=== PATIENT | female | born 1970 | race Asian ===

== ENCOUNTER 2021-02-09 18:20 | Observation (INO) ==
[2021-02-09] MEDS ORDERED: ONDANSETRON 4 MG/2 ML VIAL IV PRN (19:34)
[2021-02-09] MEDS ORDERED: PROMETHAZINE 25 MG/ML VIAL IV PRN (19:34)
[2021-02-09] MEDS ORDERED: ACETAMINOPHEN 1,000 MG/100 ML BAG IV PRN (19:44)
--- NOTE | 2021-02-09 19:44 | General Surg History&Physical ---
HPI History of Present Illness Patient information: Note initiated : 02/09/21 at 7:37 pm Service Date, if different from initiated Date: [] Patient: Rachelle Flores a 50 y/o F admitted on for Laparoscopic Appedectomy. Chief Complaint: [] Chief complaint: Acute abdominal pain History of present illness: Ms. Flores is a 50 year old F admitted with acute appendicitis. Patient had onset of pain in the right lower quadrant about 2300 hrs. last evening. The pain became increasingly severe. She denies nausea vomiting. She did not have fever or chills. She was seen at [facility] this afternoon and was noted to have white blood count of 20,500 with right lower quadrant tenderness. CT of the abdomen is compatible with acute appendicitis. Patient is admitted and will be treated with antibiotics tonight. She will have laparoscopic appendectomy tomorrow Review of Systems All systems: reviewed and no additional remarkable complaints except as stated PFSH PFSH All Active Problems (Updated 02/09/21 @ 19:42 by David Moya MD) Acute appendicitis (Acute) Family History Mother , age 49 Cause of unknown No problems noted. Father , age 42 cause of unknown No problems noted. MEDS/ALLERGIES Home Medications and Allergies Home Medications Medication Instructions Recorded Confirmed Type No Known Home Meds 02/09/21 02/09/21 History Allergies Allergy/AdvReac Type Severity Reaction Status Date / Time No Known Drug Allergies Allergy Unverified 02/09/21 19:06 Physical Examination Vital Signs Vital signs: Temp Pulse Resp BP Pulse Ox 99.3 F H 67 20 116/69 100 02/09/21 18:52 02/09/21 18:52 02/09/21 18:52 02/09/21 18:52 02/09/21 18:52 General physical appearance General physical exam: well developed, well nourished, moderate distress and moderate pain Eyes Eye exam: PERRL and normal ocular movement ENT ENT exam: normal nares, normal mucosa and no hearing loss Head Head exam IM: Present atraumatic, normal inspection and normocephalic Neck Neck exam: no masses, no bruits, trachea midline, no lymphadenopathy and no venous distension Cardiovascular Cardiovascular exam IM: Present normal rate and rhythm, RRR, +S1 and +S2; Absent gallop and JVD Respiratory Respiratory exam: normal expansion, normal respiratory effort and clear to auscultation Abdomen Abdomen: Present tender (Tenderness right lower quadrant with guarding) Integumentary Integumentary: Present no rash, no growths and no abnormal pigmentation Neurologic Neurologic: Present normal coordination and normal sensation Musculoskeletal Musculoskeletal: Present normal gait and normal posture Psychiatric Psychiatric: Present oriented to time, oriented to person, oriented to place, speech is normal and memory intact Results Labs Labs: All other labs normal. A/P Assessment and plan (1) Acute appendicitis: Status: Acute Narrative A/P Narrative: Zosyn 3.375 g IV every 6 hours N.p.o. after midnight Scheduled for appendectomy tomorrow Hydromorphone 1 mg IV every 2 hours as needed Promethazine 12.5 mg IV every 6 hours as needed nausea CBC and IP in the morning Chest x-ray and EKG tonight Time Spent With Patient Time: Total time spent is greater than 50% in coordination of care (as documented) at patient's floor/unit and/or counseling patient:
--- NOTE | 2021-02-09 20:27 | XRay Report ---
INDICATION: preop evaluation TECHNIQUE: AP portable chest x-ray COMPARISON: None FINDINGS: Lungs:Lungs are negative. No focal pulmonary parenchymal infiltrate or mass Heart, vascular:No significant cardiomegaly. Pulmonary vascularity is normal. No pulmonary edema or pulmonary congestion Mediastinum, paulina:No mediastinal widening. No hilar mass Pleura:No pleural fluid. No pleural-based mass or calcification Skeletal:Negative. IMPRESSION: Negative AP chest x-ray Interpreted and Authenticated by: Sulaiman Jacob 02/09/21
[2021-02-09 20:37] LABS: Prothrombin Time 13.3 sec (11.9-14.5)
[2021-02-09] MEDS: 0.9 % SODIUM CHLORIDE 1,000 ML IV SCH (20:44)
[2021-02-09] MEDS: HYDROmorphone 1 MG/ML SYRINGE IV PRN (20:51)
[2021-02-09] MEDS: PIPERACILLIN SODIUM/TAZOBACTAM 3.375 GM in DEXTROSE 5% IN WATER 50 ML IV SCH ×2 (20:55→23:47)
[2021-02-10] MEDS: 0.9 % SODIUM CHLORIDE 1,000 ML IV SCH ×4 (04:06→20:36)
[2021-02-10] MEDS: HYDROmorphone 1 MG/ML SYRINGE IV PRN (05:00)
[2021-02-10] MEDS: PIPERACILLIN SODIUM/TAZOBACTAM 3.375 GM in DEXTROSE 5% IN WATER 50 ML IV SCH ×4 (05:05→17:43)
[2021-02-10] MEDS ORDERED: SCOPOLAMINE 1 PATCH PATCH TOPICAL PRN (06:00)
[2021-02-10] MEDS ORDERED: IPRATROPIUM/ALBUTEROL 3 ML AMPUL.NEB NEB PRN ×2 (06:00→11:45)
[2021-02-10] MEDS ORDERED: PANTOPRAZOLE 40 MG VIAL IV SCH (07:30)
[2021-02-10 08:33] LABS: Basophils # (Auto) 0.13 K/mcL (0.00-0.30); Basophils % (Auto) 0.6 % (0.0-2.0); Eosinophils % (Auto) 1.4 % (0.0-7.0); Hemoglobin 12.7 g/dL (11.2-15.7); Lymphocytes # (Auto) 2.72 K/mcL (1.50-4.80); Lymphocytes % (Auto) 12.9 % (15.5-49.0); Mean Cell Volume 93.8 fL (80.0-100.0); Mean Corpuscular HGB Conc 33.4 g/dL (31.0-36.0); Mean Platelet Volume 10.3 fL (7.4-10.4); Monocytes % (Auto) 6.6 % (1.0-12.0); Neutrophils % (Auto) 78.5 % (38.0-78.0); Platelet Count 276 K/mcL (140-440); RBC 4.05 M/mcL (3.59-5.38); Red Cell Distribution Width 12.7 % (11.5-14.5); WBC 21.1 K/mcL (4.5-11.0)
[2021-02-10 08:52] LABS: ALT/SGPT 21 U/L (<40); AST/SGOT 19 U/L (<32); Albumin 3.5 gm/dL (3.2-5.2); Albumin/Globulin Ratio 1.3 (1.0-2.3); Alkaline Phosphatase 93 U/L (39-117); Bilirubin,Direct 0.2 mg/dL (<0.3); Bilirubin,Total 0.8 mg/dL (0.1-1.0); Blood Urea Nitrogen 7 mg/dL (6-20); Calcium 7.9 mg/dL (8.6-10.4); Carbon Dioxide 21 mmol/L (22-30); Chloride 105 mmol/L (96-108); Globulin 2.8 gm/dL (2.2-3.7); Glomerular Filtration Rate 112; Glucose 119 mg/dL (70-105); Lactate Dehydrogenase 166 U/L (135-225); Phosphorous 2.4 mg/dL (2.5-4.5); Triglycerides 76 mg/dL (<150); Uric Acid 3.2 mg/dL (2.5-8.0)
[2021-02-10] MEDS ORDERED: ONDANSETRON 4 MG/2 ML VIAL ONE (11:15)
[2021-02-10] MEDS ORDERED: DEXAMETHASONE 10 MG/ML VIAL ONE (11:15)
[2021-02-10] MEDS ORDERED: KETAMINE 50 MG/ML Syringe (ANEST) IV ONE (11:15)
[2021-02-10] MEDS ORDERED: SUGAMMADEX SODIUM 200 MG/2 ML VIAL IV ONE (11:15)
[2021-02-10] MEDS ORDERED: MAGNESIUM SULFATE 2 GM/50 ML BAG IV ONE (11:15)
[2021-02-10] MEDS ORDERED: PROPOFOL 200 MG/20 ML VIAL IV ONE (11:15)
[2021-02-10] MEDS ORDERED: fentaNYL 100 MCG/2 ML VIAL IV ONE (11:15)
[2021-02-10] MEDS ORDERED: ROCURONIUM 10 MG/ML ML IV ONE (11:15)
[2021-02-10] MEDS ORDERED: MEPERIDINE 25 MG/ML VIAL IV PRN (11:45)
[2021-02-10] MEDS ORDERED: ONDANSETRON 4 MG/2 ML VIAL IV PRN ×2 (11:45→13:05)
[2021-02-10] MEDS ORDERED: KETOROLAC 30 MG/ML VIAL IV PRN (11:45)
[2021-02-10] MEDS ORDERED: fentaNYL 100 MCG/2 ML VIAL IV PRN (11:45)
[2021-02-10] MEDS ORDERED: LACTATED RINGERS 1,000 ML IV SCH (11:45)
[2021-02-10] MEDS ORDERED: PROMETHAZINE 25 MG/ML VIAL IV PRN ×2 (11:45→13:05)
[2021-02-10] MEDS ORDERED: LACTATED RINGERS 250 ML IV PRN (11:45)
[2021-02-10] MEDS ORDERED: NALOXONE HCL 0.4 MG/ML VIAL IV PRN (11:45)
[2021-02-10] MEDS ORDERED: ACETAMINOPHEN 1,000 MG/100 ML BAG IV ONE (11:45)
[2021-02-10] MEDS ORDERED: diphenhydrAMINE 50 MG/ML VIAL IV PRN (11:45)
--- NOTE | 2021-02-10 11:57 | Brief Operative Note ---
Brief Operative Note Date of procedure: 02/10/21 Pre-op diagnosis: acute appendicitis Post-op diagnosis: other (ACUTE APPENDICITIS) Procedure: LAPAROSCOPIC APPENDECTOMY Grafts/Implants: No Anesthesia: GETA Findings: ACUTE SUPPURATIVE APPENDICITIS Complications: none Surgeon: David Moya Estimated blood loss (cc): 10 Specimens Removed/Pathology: other (APPENDIX) Condition: stable Disposition: PACU
[2021-02-10] MEDS ORDERED: HYDROmorphone 1 MG/ML SYRINGE IV PRN (13:05)
[2021-02-10] MEDS ORDERED: ACETAMINOPHEN 1,000 MG/100 ML BAG IV PRN ×2 (13:05→18:00)
[2021-02-10] MEDS: PANTOPRAZOLE 40 MG VIAL IV SCH (17:43)
[2021-02-11] MEDS: PIPERACILLIN SODIUM/TAZOBACTAM 3.375 GM in DEXTROSE 5% IN WATER 50 ML IV SCH ×2 (00:15→05:16)
[2021-02-11] MEDS: 0.9 % SODIUM CHLORIDE 1,000 ML IV SCH ×2 (04:18→12:12)
[2021-02-11 06:32] LABS: Basophils # (Auto) 0.04 K/mcL (0.00-0.30); Basophils % (Auto) 0.2 % (0.0-2.0); Eosinophils # (Auto) 0.01 K/mcL (0.00-0.70); Eosinophils % (Auto) 0.1 % (0.0-7.0); Hematocrit 37.1 % (34.1-44.9); Hemoglobin 12.4 g/dL (11.2-15.7); Lymphocytes # (Auto) 1.56 K/mcL (1.50-4.80); Mean Cell Volume 94.9 fL (80.0-100.0); Mean Corpuscular HGB Conc 33.4 g/dL (31.0-36.0); Mean Platelet Volume 10.6 fL (7.4-10.4); Monocytes # (Auto) 1.11 K/mcL (0.10-0.90); Monocytes % (Auto) 5.7 % (1.0-12.0); Platelet Count 247 K/mcL (140-440); RBC 3.91 M/mcL (3.59-5.38); Red Cell Distribution Width 12.9 % (11.5-14.5); WBC 19.6 K/mcL (4.5-11.0)
[2021-02-11 07:12] LABS: ALT/SGPT 42 U/L (<40); AST/SGOT 34 U/L (<32); Albumin 3.1 gm/dL (3.2-5.2); Alkaline Phosphatase 100 U/L (39-117); Bilirubin,Direct 0.2 mg/dL (<0.3); Bilirubin,Total 0.7 mg/dL (0.1-1.0); Blood Urea Nitrogen 7 mg/dL (6-20); Calcium 7.8 mg/dL (8.6-10.4); Carbon Dioxide 20 mmol/L (22-30); Chloride 110 mmol/L (96-108); Globulin 3.1 gm/dL (2.2-3.7); Glomerular Filtration Rate 112; Glucose 127 mg/dL (70-105); Lactate Dehydrogenase 163 U/L (135-225); Phosphorous 1.3 mg/dL (2.5-4.5); Triglycerides 52 mg/dL (<150); Uric Acid 2.3 mg/dL (2.5-8.0)
[2021-02-11] MEDS: PANTOPRAZOLE 40 MG VIAL IV SCH (07:32)
--- NOTE | 2021-02-11 11:59 | Discharge Summary ---
Discharge Provider Provider Patient information: Note initiated : 02/11/21 at 11:53 am Service Date, if different from initiated Date: [] Patient: Rachelle Flores 50 y/o F admitted on 02/09/21 for Laparoscopic Appedectomy. Chief Complaint: [] Date of admission: 02/09/21 18:21 Discharge date: 02/11/21 Admitting clinician: David Moya Attending physician on discharge: David Moya Discharging clinician: Dvaid Moya COURSE Hospital Course Hospital course: 50-year-old female with history of right lower quadrant abdominal pain for 24 hours prior to being evaluated. She was evaluated at [facility] in [facility] and transferred here with acute appendicitis. She underwent laparoscopic appendectomy on 02/10/2021. She was found to have acute suppurative appendicitis.. Operative procedure proceeded uneventfully and she has done well. Her white blood count is still elevated but she has been afebrile. There was no significant residual inflammation after the appendectomy. The patient is clinically stable at this discharged home with plans for follow-up in 2 weeks Discharge diagnosis: Acute appendicitis Reason for admission: Acute appendicitis Procedures: Laparoscopic appendectomy Pertinent studies/significant findings: None Complications: None Time Spent with Patient Time attestation: Total time spent providing and/or coordinating discharge services: Physical Examination Vital Signs Vital signs: Temp Pulse Resp BP Pulse Ox 98.0 F 65 12 112/64 97 02/11/21 08:00 02/11/21 08:00 02/11/21 08:00 02/11/21 08:00 02/11/21 08:00 Head Head exam IM: Present atraumatic, normal inspection and normocephalic Neck Neck exam: no masses, no bruits, trachea midline, no lymphadenopathy and no venous distension Cardiovascular Cardiovascular exam IM: Present normal rate and rhythm, RRR, +S1 and +S2; Absent gallop and JVD Respiratory Respiratory exam: normal expansion, normal respiratory effort and clear to auscultation Abdomen Abdomen: Present tender (Mild tenderness around port sites) and bowel sounds (Normal active bowel sounds) Integumentary Integumentary: Present no rash, no growths and no abnormal pigmentation Neurologic Neurologic: Present normal coordination and normal sensation Musculoskeletal Musculoskeletal: Present normal gait and normal posture Psychiatric Psychiatric: Present oriented to time, oriented to person, oriented to place, speech is normal and memory intact Discharge Plan Patient/Caregiver Discharge Instructions Activity: increase activity as tolerated Diet: Regular Diet Prescriptions: New oxycodone-acetaminophen [Endocet] 5-325 mg Tablet 1 tab PO Q4H PRN (Reason: Pain) Qty: 30 RF: 0 levofloxacin [levofloxacin] 750 MG tablet 750 mg PO DAILY Qty: 7 RF: 0 Follow Up Plan Follow up with: David Moya MD [Physician] - (Office appointment in 2 weeks) Patient Disposition: Home, Self-Care Prognosis: Good Rehab Potential: Good I certify that the patient requires SNF services: No Overall status at discharge: patient is progressing back to baseline Discharge Orders: Discharge Order (Routine); Ordered 02/11/21 Ordered By: David Moya Pending Pending Pending: Resuscitation Status Full Code Diet Regular Diet Start [place] Feb 4 0800 Sodium Chloride (Sodium Chloride 0.9%) 1,000 mls @ 150 mls/hr IV .Q6H40M [facility] Last Admin: 02/11/21 04:18 Dose: 150 mls/hr Documented by: АЛЕКСАНДР Infusion: 02/11/21 04:15 Dose: 0 mls/hr Documented by: АЛЕКСАНДР Admin: 02/10/21 20:36 Dose: 150 mls/hr Documented by: Infusion: 02/10/21 19:55 Dose: 150 mls/hr Documented by: Admin: 02/10/21 13:14 Dose: 150 mls/hr Documented by: JANETH Piperacillin Sod/Tazobactam (Sod 3.375 gm/ Dextrose) 50 mls @ 100 mls/hr IV Q6H [facility]; Protocol Last Admin: 02/11/21 05:16 Dose: 100 mls/hr Documented by: Infusion: 02/11/21 02:49 Dose: 0 mls/hr Documented by: Admin: 02/11/21 00:15 Dose: 100 mls/hr Documented by: Infusion: 02/10/21 18:40 Dose: 0 mls/hr Documented by: Admin: 02/10/21 17:43 Dose: 100 mls/hr Documented by: Infusion: 02/10/21 13:45 Dose: 0 mls/hr Documented by: [email or web address] Admin: 02/10/21 13:15 Dose: 100 mls/hr Documented by: JANETH Pantoprazole Sodium (Pantoprazole 40 Mg Vial) 40 mg IV BIDAC [facility] Last Admin: 02/11/21 07:32 Dose: 40 mg Documented by: Admin: 02/10/21 17:43 Dose: 40 mg Documented by: JANETH Shift Summary 02/11/21 03:37 Shift Summary by Colin Arellano Primary Diagnosis: Appendicitis, Laparoscopic Appendectomy Registration Status: ExR Day of Hospitalization: 2 Date of Surgery (if applicable): 02/10/2021 Pertinent Medical Dx/Issues (may be more than one): Acute appendicitis Interventions (O2, wounds, diuresis, etc): Lap site x3 to abdomen with adam and tegaderm, Vital Signs with Trends: VSS on RA Meds (abo, pain, BP, etc): Zosyn Lines/Tubes: 20g RH with NS 150ml/hr Oxygen needs (home use vs. current use): RA, no home O2 use Lab/Rad results: WBC 21.1 on 02/10 Date of last BM: 02/10/2021 Elimination: void per bathroom, standby assist Trends (is the patient improving?): patient denies pain, nausea, dizziness, lig htheadedness Activity: standby assist to help with IV lines Expected date of discharge: 02/11/2021 Discharge Plan (needs, disposition, etc): Home with daughter A&O x4, calm and cooperative. Pt can progress to regular diet from 02/11 breakfast. Initialized on 02/11/21 03:37 - END OF NOTE
--- NOTE | 2021-02-11 12:33 | Surgical Pathology Report ---
Histology Microscopic Diagnosis Specimen A- APPENDIX, APPENDECTOMY: --- SUPPURATIVE ACUTE APPENDICITIS WITH TRANSMURAL INFLAMMATION AND MARKED ACUTE PERITONITIS. (ACP) Gross Description Received in formalin labeled appendix, is a perez-ventura appendix. It measures 9.6 cm in length by up to 1.5 cm in diameter. The resection margin is stapled into the fat. It is 2.5 cm and is inked black. There is an additional 3 cm stapled margin within the fat. The serosal surface is mottled perez-ventura. Sectioning reveals ventura fecal material and dusky green mucosal surface. Grossly there are no areas of perforation identified. Interface Control Officer sections are submitted in two cassettes. (SCB:dionne) Electronically Signed Abram Leo MD, FCAP Electronically Signed 02/11/2021 12:32
--- NOTE | 2021-02-14 16:59 | EKG ---
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
--- NOTE | 2021-02-17 15:42 | Operative Note ---
DATE OF OPERATION: 02/10/2021 PREOPERATIVE DIAGNOSIS: Acute appendicitis. POSTOPERATIVE DIAGNOSIS: Acute appendicitis. PROCEDURE PERFORMED: Laparoscopic appendectomy. SURGEON: David Moya M.D. FINDINGS: Acute suppurative appendicitis. DESCRIPTION OF PROCEDURE: Under general anesthesia, the patient's abdomen was prepped and draped in a sterile field. A supraumbilical midline incision was made and Veress needle was inserted uneventfully. Abdomen was insufflated with 1.5 liters of CO2. A 12 mm port was placed. Under videoscopic guidance, a 5 mm port was placed in the suprapubic midline and a 12 mm port in the left lower quadrant. The patient was placed in deep Trendelenburg position and rotated to the left. The appendix was found extending into the pelvis in the right gutter. Appendix was grasped and dissected. A window was made at the base of the appendix and the appendix was transected using Endo ALAN stapler. Mesoappendix was stapled using Endo ALAN stapler. Irrigation was carried out. The appendix was placed in an Endopouch and retrieved. Irrigation was carried out. No drain was needed. CO2 was allowed to escape from the abdomen and the ports were removed. The fascia at the umbilicus was closed with 0 Vicryl. Skin incisions were closed with adam. The patient tolerated the procedure well. Tegaderm dressings were placed. She was awakened, transferred to a bed, and taken to the postanesthetic care unit in satisfactory condition. LCS:monica Job ID: [id number] Doc ID: [id number] David Moya M.D.
== END 2021-02-11 13:50 | disposition home or self-care (01) ==
LOC: SSSU 18:20 → MEDSUR 18:20
PROVIDERS: ADMIT Family Medicine Adult Medicine; ATTEND Family Medicine Adult Medicine